=== PATIENT | female | born 1995 | race Hispanic/Latino ===

== ENCOUNTER 2024-10-02 10:06 | Emergency (ER) | payer BC ==
[2024-10-02] MEDS ORDERED: CEFTRIAXONE 500 MG/VIAL ONE (10:58)
[2024-10-02] MEDS ORDERED: metroNIDAZOLE 500 MG TABLET ONE (10:59)
[2024-10-02] MEDS ORDERED: FLUCONAZOLE 100 MG TAB ONE (10:59)
[2024-10-02] MEDS ORDERED: LIDOCAINE 1% MPF 2 ML AMPULE ONE (10:59)
[2024-10-02] MEDS ORDERED: AZITHROMYCIN 250 MG TAB ONE (10:59)
[2024-10-02 11:45] LABS: Specific Gravity 1.026 (1.005-1.030)
[2024-10-02 11:48] LABS: Specific Gravity 1.026 (1.005-1.030); Sqamous Epithelial <5 /HPF (None Seen); Urine Bacteria None Seen /HPF (<20); Urine Bilirubin NEGATIVE (Negative); Urine Blood Negative (Negative); Urine Clarity Extremely Turbid (Clear); Urine Color Light-Yellow (Yellow); Urine Culture Reflex Order NOT NEEDED; Urine Glucose NEGATIVE (Negative); Urine Ketones NEGATIVE (Negative); Urine Microscopic Reflex YN ORDER UMIC; Urine Mucus Slight /HPF (None Seen); Urine Nitrite NEGATIVE (Negative); Urine Protein NEGATIVE (Negative); Urine RBC <5 /HPF (None Seen); Urine Urobilinogen Normal (Normal); Urine WBC <5 /HPF (<5); Urine Yeast (Budding) Trace /HPF (None Seen)
--- NOTE | 2024-10-02 12:04 | RAD REPORT ---
EXAMINATION: US PELVIS TRANSABDOMINAL WITH DOPPLER CLINICAL INDICATION: Female 28 years old. VAG PAIN,HX PID TECHNIQUE: Real-time ultrasonography of the pelvis was performed transvaginally. Color and spectral D oppler evaluation of the ovaries was performed. COMPARISON: No prior exam. FINDINGS: UTERUS AND CERVIX: The uterus measures 8.0 x 4.6 x 3.9 cm (cervix to fundus x AP x transverse). The u terus is normal. No masses seen The endometrium is normal, 9 mm in thickness. RIGHT OVARY: Normal. The right ovary measures 3.0 x 2.3 x 2.1 cm. Normal color and spectral Doppler evaluation of the right ovary.. LEFT OVARY: Normal. The left ovary measures 3.5 x 1.8 x 1.7 cm. Normal color and spectral Doppler evaluation of the left ovary.. FREE FLUID: No free fluid. ADDITIONAL FINDINGS: IMPRESSION: Unremarkable exmaination.
--- NOTE | 2024-10-02 12:21 | EDPHYS ---
Physician Documentation [facility] Name: Angelika Cuba Age: 28 yrs Sex: Female : 1995 Arrival Date: 10/02/2024 Time: 10:06 Bed 8 Private MD: ED Physician Lincoln Johnson HPI: 10/02 12:17 This 28 yrs old Female presents to ER via Ambulatory with complaints of Pelvic rn Pain. 12:17 The patient presents with perineal itching, vaginal discharge. Onset: The rn symptoms/episode began/occurred 1 week(s) ago. Modifying factors: The symptoms are alleviated by nothing, the symptoms are aggravated by sexual intercourse. Severity of symptoms: At their worst the symptoms were mild, in the emergency department the symptoms are unchanged. The patient has experienced similar episodes in the past. Patient reports vaginal itching with discharge for about a week now. Worse with sexual intercourse. No fever or chills. Has history of PID so wanted to come make sure everything was okay. The patient reports there is a theoretical chance of sexually transmitted disease but has not sure. Partner without any symptoms. Patient reports vaginal itching and raw skin around vagina. States has had this before.. Historical: - Allergies: 10:29 No Known Allergies; ap3 - PMHx: 10:29 PID; Anxiety; Depressive disorder; ap3 - PSHx: 10:29 Appendectomy; Cholecystectomy; ap3 - Immunization history:: Client reports having NOT received the Covid vaccine. Flu vaccine is not up to date. - Infectious Disease History:: Denies. - Social history:: Smoking status: Patient denies any tobacco usage or history of. Patient uses street drugs, marijuana. - Family history:: not pertinent. - Hospitalizations: : No recent hospitalization is reported. ROS: 12:17 Constitutional: Negative for fever, chills, and weight loss, Cardiovascular: Negative rn for chest pain, palpitations, and edema, Respiratory: Negative for shortness of breath, cough, wheezing, and pleuritic chest pain, Abdomen/GI: Negative for abdominal pain, nausea, vomiting, diarrhea, and constipation, Back: Negative for injury and pain, : Positive for vaginal itching and discharge MS/Extremity: Negative for injury and deformity, Neuro: Negative for headache, weakness, numbness, tingling, and seizure, Exam: 12:19 Constitutional: This is a well developed, well nourished patient who is awake, alert, rn and in no acute distress. Abdomen/GI: Soft, non-tender Vital Signs: 10:27 BP 121 / 90; Pulse 78; Resp 17; Temp 98.3; Pulse Ox 100% ; Weight 49.9 kg; Height 5 ft. ap3 1 in. ; Pain 9/10; 12:02 BP 110 / 75; Pulse 66; Pulse Ox 100% on R/A; MAP 86 mmHg; Pain 5/10; tm6 12:40 BP 119 / 80; Pulse 80; Resp 18; Temp 98.3; Pulse Ox 100% on R/A; MAP 94 mmHg; Pain 5/10;tm6 10:27 Body Mass Index 20.78 (49.90 kg, 154.94 cm) ap3 10:27 Pain Scale: Adult ap3 12:02 Pain Scale: Adult tm6 12:40 Pain Scale: Adult tm6 MDM: 10:34 Medical Screening Exam initiated rn 12:19 Differential diagnosis: pelvic inflammatory disease, urinary tract infection, rn vaginosis, Tubo-ovarian abscess, vulvovaginitis. Data reviewed: vital signs, nurses notes, and as a result, I will discharge patient. Counseling: I had a detailed discussion with the patient and/or guardian regarding the historical points, exam findings, and any diagnostic results supporting the discharge/admit diagnosis, lab results, radiology results, the need for outpatient follow up, to return to the emergency department if symptoms worsen or persist or if there are any questions or concerns that arise at home. Special discussion: I discussed with the patient/guardian in detail that at this point there is no indication for admission to the hospital. It is understood, however, that if the symptoms persist or worsen the patient needs to return immediately for re-evaluation. ED course: Ultrasound negative for tubo-ovarian abscess or pelvic inflammatory disease. Will treat for vulvovaginitis and empirically treated for STI. Urged to follow-up with gynecology especially if treatment does not help.. 10/02 10:45 Order name: Urinalysis w/ reflexes; Complete Time: 11:53 rn 10/02 10:45 Order name: Test, Urine; Complete Time: 11:53 rn 10/02 10:45 Order name: US Pelvis Complete; Complete Time: 12:08 rn 10/02 11:00 Order name: Transvaginal Study Probe; Complete Time: 12:08 EDMS Administered Medications: 11:33 Drug: Rocephin (cefTRIAXone) IM 500 mg IM once Route: IM; Site: right gluteus; tm6 12:41 Follow up: Response: No adverse reaction tm6 11:33 Drug: AZITHromycin PO 1 grams PO once Route: PO; tm6 12:41 Follow up: Response: No adverse reaction tm6 11:33 Drug: metroNIDAZOLE PO 2 grams PO once Route: PO; tm6 12:41 Follow up: Response: No adverse reaction tm6 11:33 Drug: Fluconazole PO 200 mg PO once Route: PO; tm6 12:41 Follow up: Response: No adverse reaction tm6 Disposition Summary: 10/02/24 12:20 Discharge Ordered Notes: Location: Home rn Problem: new rn Symptoms: are unchanged rn Condition: Stable rn Diagnosis - Vaginitis, vulvitis and vulvovaginitis in diseases classified elsewhere rn Followup: rn - With: Private Physician - When: As needed - Reason: Recheck today's complaints, Re-evaluation by your physician Discharge Instructions: - Discharge Summary Sheet rn - Vaginitis rn Forms: - Medication Reconciliation Form rn - Antibiotic manager rn - Prescription Opioid Use rn - Patient Portal Instructions rn - Leadership Thank You Letter rn - Work release form tm6 Prescriptions: - Clotrimazole 1 % Vaginal cream - insert 1 applicatorful VAGINAL route At bedtime for 7 days; 7 Applicator; rn Refills: 0, Product Selection Permitted - Diflucan 100 mg Oral tablet - take 2 tablets ORAL route Day 1 for 7 days - then take one tablet by oral route rn every day for 7 days.; 8 tablet; Refills: 0, Product Selection Permitted - Doxycycline Hyclate 100 mg Oral Tablet - take 1 tablet ORAL route every 12 hours; 20 tablet; Refills: 0, Product rn Selection Permitted Signatures: Dispatcher [employer] EDRI Lincoln Johnson MD MD rn Prokisch, Amanda, RN RN ap3 Dominique Long RN RN tm6
--- NOTE | 2024-10-02 12:21 | ER ---
Nurse's Notes [facility] Name: Angelika Cuba Age: 28 yrs Sex: Female : 1995 Arrival Date: 10/02/2024 Time: 10:06 Bed 8 Private MD: Diagnosis: Vaginitis, vulvitis and vulvovaginitis in diseases classified elsewhere Presentation: 10/02 10:27 Chief complaint: Patient states: she has "really bad itching and burning in and out of ap3 my vagina area" patient also complains of discharge that is causing "my underwear to stick to me and it hurts!". patient reports these symptoms have been ongoing for 2 days and rates her pain as a 9/10 on the pain scale. Coronavirus screen: At this time, the client does not indicate any symptoms associated with coronavirus-19. Ebola Screen: No symptoms or risks identified at this time. Initial Sepsis Screen: Does the patient meet any 2 criteria? No. Patient's initial sepsis screen is negative. Does the patient have a suspected source of infection? No. Patient's initial sepsis screen is negative. Risk Assessment: Do you want to hurt yourself or someone else? Patient reports no desire to harm self or others. Onset of symptoms was September 30, 2024. 10:27 Method Of Arrival: Ambulatory ap3 10:27 Acuity: MAERK 3 ap3 Triage Assessment: 10:29 General: Appears uncomfortable, Behavior is calm, cooperative, appropriate for age. ap3 Pain: Complains of pain in vaginal opening Pain currently is 9 out of 10 on a pain scale. Pain began gradually, 2-3 days ago. Neuro: Level of Consciousness is awake, alert, obeys commands, Oriented to person, place, time, situation, Appropriate for age. Cardiovascular: Patient's skin is warm and dry. Respiratory: Airway is patent Respiratory effort is even, unlabored, Respiratory pattern is regular, symmetrical. : Reports burning with urination, discharge, from vagina that is vaginal itching. Historical: - Allergies: 10:29 No Known Allergies; ap3 - PMHx: 10:29 PID; Anxiety; Depressive disorder; ap3 - PSHx: 10:29 Appendectomy; Cholecystectomy; ap3 - Immunization history:: Client reports having NOT received the Covid vaccine. Flu vaccine is not up to date. - Infectious Disease History:: Denies. - Social history:: Smoking status: Patient denies any tobacco usage or history of. Patient uses street drugs, marijuana. - Family history:: not pertinent. - Hospitalizations: : No recent hospitalization is reported. Screenin:31 [facility] ED Fall Risk Assessment (Adult) History of falling in the last 3 months, ap3 including since admission No falls in past 3 months (0 pts) Confusion or Disorientation No (0 pts) Intoxicated or Sedated No (0 pts) Impaired Gait No (0 pts) Mobility Assist Device Used No (0 pt) Altered Elimination No (0 pt) Score/Fall Risk Level 0 - 2 = Low Risk Oriented to surroundings, Maintained a safe environment, Educated pt \\T\\ family on fall prevention, incl call for assistance when getting out of bed, Assessed \\T\\ reinforced patient's understanding of fall precautions, Hourly rounding (assess needs \\T\\ fall precautionary measures) done, Used ambulatory aids as needed (educated on \\T\\ assisted with), Used gait belt as appropriate. Abuse screen: Denies threats or abuse. Nutritional screening: No deficits noted. Tuberculosis screening: No symptoms or risk factors identified. Assessment: 10:32 General: Appears in no apparent distress. Behavior is calm, cooperative. Pain: tm6 Complains of pain in pelvis and vaginal opening Pain currently is 9 out of 10 on a pain scale. Pain began 2-3 days ago. Neuro: Level of Consciousness is awake, alert, obeys commands, Oriented to person, place, time, situation. Cardiovascular: Patient's skin is warm and dry. Respiratory: Airway is patent Respiratory effort is even, unlabored, Respiratory pattern is regular, symmetrical. GI: No signs and/or symptoms were reported involving the gastrointestinal system. Abdomen is flat, non-distended. : Reports discharge, from vagina that is yellow, pain vaginal area. EENT: No signs and/or symptoms were reported regarding the EENT system. Derm: No signs and/or symptoms reported regarding the dermatologic system. Musculoskeletal: No signs and/or symptoms reported regarding the musculoskeletal system. 12:03 Reassessment: Patient and/or family updated on plan of care and expected duration. Pain tm6 level reassessed. Patient is alert, oriented x 3, equal unlabored respirations, skin warm/dry/pink. 12:40 Reassessment: Patient and/or family updated on plan of care and expected duration. Pain tm6 level reassessed. Patient is alert, oriented x 3, equal unlabored respirations, skin warm/dry/pink. Vital Signs: 10:27 BP 121 / 90; Pulse 78; Resp 17; Temp 98.3; Pulse Ox 100% ; Weight 49.9 kg; Height 5 ft. ap3 1 in. ; Pain 9/10; 12:02 BP 110 / 75; Pulse 66; Pulse Ox 100% on R/A; MAP 86 mmHg; Pain 5/10; tm6 12:40 BP 119 / 80; Pulse 80; Resp 18; Temp 98.3; Pulse Ox 100% on R/A; MAP 94 mmHg; Pain 5/10;tm6 10:27 Body Mass Index 20.78 (49.90 kg, 154.94 cm) ap3 10:27 Pain Scale: Adult ap3 12:02 Pain Scale: Adult tm6 12:40 Pain Scale: Adult tm6 ED Course: 10:10 Patient arrived in ED. mr 10:29 Triage completed. ap3 10:31 Dominique Long, RN is Primary Nurse. tm6 10:31 Arm band placed on right wrist. ap3 10:31 Patient has correct armband on for positive identification. Bed in low position. Call ap3 light in reach. Side rails up X 1. Pulse ox on. NIBP on. Door closed. Noise minimized. 10:32 Provided Education on: use of call stuart. tm6 10:34 Lincoln Johnson MD is Attending Physician. rn 11:24 US Pelvis Complete In Process Unspecified. EDMS 11:24 Transvaginal Study Probe In Process Unspecified. EDMS 11:26 Test, Urine Sent. tm6 11:26 Urinalysis w/ reflexes Sent. tm6 12:41 No provider procedures requiring assistance completed. Patient did not have IV access tm6 during this emergency room visit. Administered Medications: 11:33 Drug: Rocephin (cefTRIAXone) IM 500 mg IM once Route: IM; Site: right gluteus; tm6 12:41 Follow up: Response: No adverse reaction tm6 11:33 Drug: AZITHromycin PO 1 grams PO once Route: PO; tm6 12:41 Follow up: Response: No adverse reaction tm6 11:33 Drug: metroNIDAZOLE PO 2 grams PO once Route: PO; tm6 12:41 Follow up: Response: No adverse reaction tm6 11:33 Drug: Fluconazole PO 200 mg PO once Route: PO; tm6 12:41 Follow up: Response: No adverse reaction tm6 Medication: 10:32 VIS not applicable for this client. tm6 Outcome: 12:20 Discharge ordered by . rn 12:41 Discharged to home ambulatory, tm6 12:41 Condition: stable 12:41 Discharge instructions given to patient, Instructed on discharge instructions, follow up and referral plans. medication usage, Demonstrated understanding of instructions, follow-up care, medications, Prescriptions given X 3, 12:42 Patient left the ED. tm6 Signatures: Dispatcher [employer] EDMS Prudence Hernandez, Reg Reg Lincoln Beckford MD MD rn Prokisch, Amanda, RN RN Dominique Agee RN RN tm6
[2024-10-02 12:47] VITALS: TEMP 98.3; O2SAT 100
[2024-10-02 12:50] VITALS: BP 119/80
== END 2024-10-02 12:42 | disposition home or self-care (01) ==
LOC: ER 10:06
DX: N76.0 Acute vaginitis (principal); N76.2 Acute vulvitis; F41.9 Anxiety disorder, unspecified; F32.A Depression, unspecified; N73.9 Female pelvic inflammatory disease, unspecified
CPT/HCPCS: 76830; 76856; 81001; 81025; 96372; 99284